=== PATIENT | male | born 1995 | race Caucasian/White ===

== ENCOUNTER 2020-01-06 10:03 | Emergency (ER) | payer OTHER ==
[~2020-01-06] VITALS: Ht 185.4 cm; Wt 80.9 kg
[2020-01-06] MEDS ORDERED: GABA-845 PO (10:10)
[2020-01-06] MEDS ORDERED: OMEP40CA97 PO (10:10)
[2020-01-06] MEDS ORDERED: ONDANSETRON 4MG/2ML VIAL (J2405) IV ONE (10:45)
[2020-01-06] MEDS ORDERED: NS 1,000 ML IV ONE (10:45)
[2020-01-06] MEDS ORDERED: KETOROLAC 30 MG/ML VIAL (J1885) IV ONE (10:45)
[2020-01-06 11:06] LABS: BASO % 0.4 % (0.0-1.0); EOS # 0.2 10^3/uL (0.0-0.5); EOS % 2.8 % (0.0-3.0); HEMATOCRIT 42.9 % (42.0-52.0); HEMOGLOBIN 14.4 g/dl (13.5-17.5); LYMPH % 25.4 % (24.0-44.0); MEAN CORPUSCULAR HEMOGLOBIN 29.3 pg (27.0-33.0); MEAN CORPUSCULAR HGB CONC 33.6 g/dl (32.0-36.5); MEAN CORPUSCULAR VOLUME 87.2 fl (80.0-96.0); MONO # 0.6 10^3/uL (0.0-0.8); MONO % 7.9 % (0.0-5.0); NEUTROPHILS % 63.4 % (36.0-66.0); PLATELET COUNT, AUTOMATED 208 10^3/uL (150-450); RED BLOOD COUNT 4.92 10^6/uL (4.30-6.10)
[2020-01-06 11:27] LABS: ALBUMIN 4.2 GM/DL (3.2-5.2); BILIRUBIN,DIRECT 0.2 MG/DL (0.0-0.2); BILIRUBIN,TOTAL 1.3 MG/DL (0.2-1.0); TOTAL PROTEIN 7.8 GM/DL (6.4-8.2)
--- NOTE | 2020-01-06 11:45 | REP ---
REASON: Right upper quadrant pain. COMPARISON: None. Multiple ultrasonographic images of the liver show the hepatic parenchymal echopattern to be within normal limits. There are no masses. There is no intrahepatic or extrahepatic ductal dilatation. The common bile duct measures approximately 5 mm in its greatest dimension. Multiple ultrasonographic images of the gallbladder show no abnormalities. There are no choleliths. There is no pericholecystic edema. There is no gallbladder wall thickening. The imaged portion of right kidney and pancreas are within normal limits. IMPRESSION: Negative right upper quadrant ultrasound. Electronically Signed by Sathish Palomo DO 01/06/2020 01:54 P
--- NOTE | 2020-01-06 12:03 | REP ---
TWO-VIEW CHEST: REASON: Chest pain. COMPARISON: No priors. FINDINGS: The superior mediastinal structures are midline. The cardiac silhouette is unremarkable in size, shape, and position. The diaphragmatic surfaces of the lungs are regular, and the costophrenic angles are clear. The pulmonary minor are clear. The imaged osseous structures are intact. IMPRESSION: There is no acute cardiopulmonary disease. Electronically Signed by Sathish Palomo DO 01/06/2020 01:55 P
[2020-01-06 12:19] VITALS: BP 131/72
== END 2020-01-06 12:21 | disposition home or self-care (01) ==
LOC: EDBD 10:03 → M ED 10:03
DX: R10.11 Right upper quadrant pain (principal); R11.0 Nausea; K21.9 Gastro-esophageal reflux disease without esophagitis; F17.290 Nicotine dependence, other tobacco product, uncomplicated; Z79.899 Other long term (current) drug therapy
CPT/HCPCS: 36415; 71046; 76705; 80047; 80076; 83605; 83690; 85025; 99284; J1885; J2405

== ENCOUNTER 2020-10-25 12:16 | Day surgery (SDC) | payer OTHER ==
[~2020-10-25] VITALS: Ht 182.9 cm; Wt 85.0 kg
[~2020-10-25 12:16] MED LIST: GABA-845 PO; NS 1,000 ML IV ONE; OMEP40CA97 PO
[2020-10-25] MEDS ORDERED: propofoL 200 MG/20 ML VIAL As Ordered ONE (12:28)
[2020-10-25] MEDS ORDERED: LIDOCAINE 2% 100MG/5ML SDV (FOR ANES.) As Ordered ONE (12:28)
[2020-10-25] MEDS ORDERED: fentaNYL 100 MCG/2 ML INJECTION (J3010) As Ordered ONE (12:29)
--- NOTE | 2020-10-25 13:16 | ROOR ---
Patient Name: Marino Garcia Procedure Date: 10/25/2020 12:48 PM Date of : 1995 Age: 25 Room: [facility] Gender: Male Note Status: Finalized Procedure: Upper GI endoscopy Indications: Heartburn, Persistent vomiting Providers: Stevenson Willis MD Referring MD: BERTRAND THURSTON MD Requesting Provider: Medicines: Monitored Anesthesia Care Complications: No immediate complications. Procedure: Pre-Anesthesia Assessment: - Prior to the procedure, a History and Physical was performed, and patient medications and allergies were reviewed. The patient is competent. The risks and benefits of the procedure and the sedation options and risks were discussed with the patient. All questions were answered and informed consent was obtained. Patient identification and proposed procedure were verified by the physician, the nurse and the anesthesiologist in the procedure room. Mental Status Examination: alert and oriented. Airway Examination: normal oropharyngeal airway and neck mobility. Respiratory Examination: clear to auscultation. CV Examination: normal. Prophylactic Antibiotics: The patient does not require prophylactic antibiotics. Prior Anticoagulants: The patient has taken no previous anticoagulant or antiplatelet agents. ASA Grade Assessment: II - A patient with mild systemic disease. After reviewing the risks and benefits, the patient was deemed in satisfactory condition to undergo the procedure. The anesthesia plan was to use monitored anesthesia care (MAC). Immediately prior to administration of medications, the patient was re-assessed for adequacy to receive sedatives. The heart rate, respiratory rate, oxygen saturations, blood pressure, adequacy of pulmonary ventilation, and response to care were monitored throughout the procedure. The physical status of the patient was re-assessed after the procedure. The Endoscope was introduced through the mouth, and advanced to the second part of duodenum. The upper GI endoscopy was accomplished without difficulty. The patient tolerated the procedure well. Findings: Mucosal changes including longitudinal furrows, white plaques and mucosal friability were found in the middle third of the esophagus and in the lower third of the esophagus. Biopsies were obtained from the proximal and distal esophagus with cold forceps for histology of suspected eosinophilic esophagitis. Verification of patient identification for the specimen was done by the physician and nurse using the patient's name, date and medical record number. Estimated blood loss was minimal. The Z-line was regular and was found 37 cm from the incisors. Scattered mild inflammation characterized by erythema and granularity was found in the gastric antrum. Biopsies were taken with a cold forceps for Helicobacter pylori testing. The duodenal bulb and second portion of the duodenum were normal. Impression: - Esophageal mucosal changes suspicious for eosinophilic esophagitis. Biopsied. - Z-line regular, 37 cm from the incisors. - Gastritis. Biopsied. - Normal duodenal bulb and second portion of the duodenum. Recommendation: - Patient has a contact number available for emergencies. The signs and symptoms of potential delayed complications were discussed with the patient. Return to normal activities tomorrow. Written discharge instructions were provided to the patient. - Anti-acid reflux diet -- small meals, sit upright atleast 1 hour after meals, avoid fatty/ oily foods and avoid foods that cause reflux. - Avoid the food allergens. Follow Six Food Elimination Diet ( Avoid -- milk, soy, eggs, wheat, peanuts/tree nuts, and seafood), until allergy testing is done. 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 - Await pathology results. - Follow an antireflux regimen. - Telephone GI clinic for pathology results in 2 weeks. - Return to primary care physician. Procedure Code(s): --- Professional --- 86174, Esophagogastroduodenoscopy, flexible, transoral; with biopsy, single or multiple Diagnosis Code(s): --- Professional --- K22.8, Other specified diseases of esophagus K29.70, Gastritis, unspecified, without bleeding R12, Heartburn R11.15, Cyclical vomiting syndrome unrelated to migraine CPT copyright 2019 [employer]. All rights reserved. The codes documented in this report are preliminary and upon maintenance scheduler review may be revised to meet current compliance requirements. Stevenson Willis MD Stevenson Willis MD 10/25/2020 1:16:25 PM Electronically signed by Stevenson Willis MD Number of Addenda: 0 Note Initiated On: 10/25/2020 12:48 PM Estimated Blood Loss: Estimated blood loss: none.
[2020-10-25 13:42] VITALS: BP 135/91
== END 2020-10-25 13:50 | disposition home or self-care (01) ==
LOC: M OPP 12:16
PROVIDERS: ATTEND Internal Medicine Gastroenterology
DX: R12 Heartburn (principal); R11.15 Cyclical vomiting syndrome unrelated to migraine; K20.0 Eosinophilic esophagitis; D13.1 Benign neoplasm of stomach; K29.70 Gastritis, unspecified, without bleeding; K22.8 Other specified diseases of esophagus; F41.9 Anxiety disorder, unspecified; F17.290 Nicotine dependence, other tobacco product, uncomplicated; K21.9 Gastro-esophageal reflux disease without esophagitis; G47.00 Insomnia, unspecified; Z79.899 Other long term (current) drug therapy
CPT/HCPCS: 43239; 88305; J3010

== ENCOUNTER 2020-11-12 14:33 | Emergency (ER) | payer OTHER ==
[~2020-11-12] VITALS: Ht 182.9 cm; Wt 86.5 kg
[~2020-11-12 14:33] MED LIST changes: -NS 1,000 ML IV ONE
[2020-11-12] MEDS ORDERED: HYDR-643 PO (14:46)
[2020-11-12] MEDS ORDERED: NS 1,000 ML IV ONE (15:45)
[2020-11-12] MEDS ORDERED: PANTOPRAZOLE 40MG VIAL (C9113 PER 1) IV ONE (15:45)
--- NOTE | 2020-11-12 16:06 | REP ---
INDICATION: feels like choking. COMPARISON: None. TECHNIQUE: Three views. FINDINGS: AP and lateral views of the neck soft tissues demonstrate normal epiglottis and aryepiglottic folds. The glottic and subglottic airway are unremarkable. Retropharyngeal soft tissues are not widened. No bony destructive lesion or bony malalignment is seen. No soft tissue mass or opaque foreign body seen. IMPRESSION: Negative soft tissue radiographs of the neck. <Electronically signed by Sean Womack > 11/12/20 1998
[2020-11-12 17:05] LABS: BASO % 0.4 % (0.0-1.0); EOS # 0.1 10^3/uL (0.0-0.5); EOS % 0.9 % (0.0-3.0); HEMOGLOBIN 14.9 g/dl (13.5-17.5); LYMPH # 1.8 10^3/uL (1.5-5.0); LYMPH % 17.9 % (24.0-44.0); MEAN CORPUSCULAR HEMOGLOBIN 29.7 pg (27.0-33.0); MEAN CORPUSCULAR HGB CONC 33.9 g/dl (32.0-36.5); MEAN CORPUSCULAR VOLUME 87.6 fl (80.0-96.0); MONO # 0.7 10^3/uL (0.0-0.8); MONO % 6.4 % (2.0-8.0); NEUTROPHILS # 7.6 10^3/uL (1.5-8.5); NEUTROPHILS % 74.1 % (36.0-66.0); PLATELET COUNT, AUTOMATED 235 10^3/uL (150-450); RED BLOOD COUNT 5.02 10^6/uL (4.30-6.10); WHITE BLOOD COUNT 10.3 10^3/uL (4.0-10.0)
[2020-11-12 17:28] LABS: ERYTHROCYTE SEDIMENTATION RATE 2 mm/hr (0-15)
[2020-11-12 17:29] LABS: ALBUMIN 4.2 GM/DL (3.2-5.2); ALT/SGPT 24 U/L (12-78); BILIRUBIN,DIRECT 0.2 MG/DL (0.0-0.2); BILIRUBIN,TOTAL 0.8 MG/DL (0.2-1.0); C REACTIVE PROTEIN QUANTITATIV < 0.30 MG/DL (0.00-0.30); CK-MB VALUE MASS < 1.0 NG/ML (<3.6); CPK CREATINE PHOSPHOKINASE 79 U/L (39-308); LIPASE 99 U/L (73-393); MB/CK RELATIVE INDEX 1.27 (< OR =4); TOTAL PROTEIN 7.1 GM/DL (6.4-8.2); TROPONIN I < 0.02 NG/ML (< 0.10)
[2020-11-12 17:46] VITALS: BP 131/73
--- NOTE | 2020-11-12 19:51 | ECGEPIP ---
[facility] - ED Test Date: 2020-11-12 Pat Name: HERB QUEZADA Department: Room: - Gender: Male Labelling Machine Operator: Joo FRANKLIN : 1995 Requested By: Laura Mancuso Order Number: [id number] Reading MD: Nasir Miller Measurements Intervals [place] Rate: 76 P: 38 [place]: 136 QRS: 32 QRSD: 98 T: 21 QT: 372 QTc: 418 Interpretive Statements Normal sinus rhythm NONSPECIFIC T WAVE ABNORMALITY(S) NO PRIORS FOR COMPARISON Electronically Signed on 11-12-2020 19:50:34 EST by Nasir Miller
== END 2020-11-12 17:47 | disposition home or self-care (01) ==
LOC: M ED 14:33
DX: K20.90 Esophagitis, unspecified without bleeding (principal); K21.9 Gastro-esophageal reflux disease without esophagitis; F17.290 Nicotine dependence, other tobacco product, uncomplicated; Z79.899 Other long term (current) drug therapy
CPT/HCPCS: 70360; 80047; 80076; 82550; 82553; 83690; 84484; 85025; 85652; 86140; 93005; 96361; 96374; 99284; C9113

== ENCOUNTER 2021-03-10 14:06 | Day surgery (SDC) | payer OTHER ==
[~2021-03-10] VITALS: Ht 185.4 cm; Wt 87.1 kg
[~2021-03-10 14:06] MED LIST changes: +ACET1TAB55 PO; +FLUT22IN INH; +GABA-283 PO; -GABA-845 PO; +HYDR-643 PO; +NAPR-885 PO; +NS 1,000 ML IV ONE; +OMEP40CA4 PO; -OMEP40CA97 PO; +PANT40TA29 PO
[2021-03-10] MEDS ORDERED: propofoL 200 MG/20 ML VIAL As Ordered ONE (15:35)
[2021-03-10] MEDS ORDERED: LIDOCAINE 2% 100MG/5ML SDV (FOR ANES.) As Ordered ONE (15:35)
[2021-03-10] MEDS ORDERED: fentaNYL 100 MCG/2 ML INJECTION (J3010) As Ordered ONE (15:36)
[2021-03-10 16:37] VITALS: BP 133/71
--- NOTE | 2021-03-10 16:54 | ROOR ---
Patient Name: Marino Garcia Procedure Date: 03/10/2021 3:51 PM Date of : 1995 Age: 25 Room: [facility] Gender: Male Note Status: Finalized Procedure: Upper GI endoscopy Indications: Follow-up of eosinophilic esophagitis Providers: Stevenson Willis MD Referring MD: BERTRAND THURSTON MD Requesting Provider: Medicines: Monitored Anesthesia Care Complications: No immediate complications. Procedure: Pre-Anesthesia Assessment: - Prior to the procedure, a History and Physical was performed, and patient medications and allergies were reviewed. The patient is competent. The risks and benefits of the procedure and the sedation options and risks were discussed with the patient. All questions were answered and informed consent was obtained. Patient identification and proposed procedure were verified by the physician, the nurse and the anesthesiologist in the procedure room. Mental Status Examination: alert and oriented. Airway Examination: normal oropharyngeal airway and neck mobility. Respiratory Examination: clear to auscultation. CV Examination: normal. Prophylactic Antibiotics: The patient does not require prophylactic antibiotics. Prior Anticoagulants: The patient has taken no previous anticoagulant or antiplatelet agents. ASA Grade Assessment: II - A patient with mild systemic disease. After reviewing the risks and benefits, the patient was deemed in satisfactory condition to undergo the procedure. The anesthesia plan was to use monitored anesthesia care (MAC). Immediately prior to administration of medications, the patient was re-assessed for adequacy to receive sedatives. The heart rate, respiratory rate, oxygen saturations, blood pressure, adequacy of pulmonary ventilation, and response to care were monitored throughout the procedure. The physical status of the patient was re-assessed after the procedure. The Endoscope was introduced through the mouth, and advanced to the second part of duodenum. The upper GI endoscopy was accomplished without difficulty. The patient tolerated the procedure well. Findings: Mucosal changes including longitudinal furrows, white plaques and crepe paper esophagus were found in the middle third of the esophagus and in the lower third of the esophagus. Biopsies were obtained from the proximal and distal esophagus with cold forceps for histology of suspected eosinophilic esophagitis. Verification of patient identification for the specimen was done by the physician and nurse using the patient's name, date and medical record number. Estimated blood loss was minimal. The Z-line was regular and was found at the gastroesophageal junction. No gross lesions were noted in the entire examined stomach. The duodenal bulb, second portion of the duodenum and third portion of the duodenum were normal. Impression: - Esophageal mucosal changes consistent with eosinophilic esophagitis. Biopsied. - Z-line regular, at the gastroesophageal junction. - No gross lesions in the stomach. - Normal duodenal bulb, second portion of the duodenum and third portion of the duodenum. Recommendation: - Patient has a contact number available for emergencies. The signs and symptoms of potential delayed complications were discussed with the patient. Return to normal activities tomorrow. Written discharge instructions were provided to the patient. - High fiber diet. - Avoid the food allergens. Follow Six Food Elimination Diet ( Avoid -- milk, soy, eggs, wheat, peanuts/tree nuts, and seafood), until allergy testing is done. - Follow an antireflux regimen. - - Take fluticasone -- 220mcg puffs - to be swallowed -- twice daily. - Await pathology results. - Telephone GI clinic for pathology results in 2 weeks. - Return to primary care physician. Procedure Code(s): --- Professional --- 61218, Esophagogastroduodenoscopy, flexible, transoral; with biopsy, single or multiple Diagnosis Code(s): --- Professional --- K22.8, Other specified diseases of esophagus K20.0, Eosinophilic esophagitis CPT copyright 2019 [employer]. All rights reserved. The codes documented in this report are preliminary and upon enterprise sales executive review may be revised to meet current compliance requirements. Stevenson Willis MD Stevenson Willis MD 03/10/2021 4:54:04 PM Electronically signed by Stevenson Willis MD Number of Addenda: 0 Note Initiated On: 03/10/2021 3:51 PM Estimated Blood Loss: Estimated blood loss was minimal.
== END 2021-03-10 17:12 | disposition home or self-care (01) ==
LOC: M OPP 14:06
PROVIDERS: ATTEND Internal Medicine Gastroenterology
DX: K22.8 Other specified diseases of esophagus (principal); K20.0 Eosinophilic esophagitis; R12 Heartburn; F17.290 Nicotine dependence, other tobacco product, uncomplicated; Z79.899 Other long term (current) drug therapy
CPT/HCPCS: 43239; 88305; J3010